=== PATIENT | male | born 1975 | race Caucasian/White ===

== ENCOUNTER 2023-06-01 21:46 | Emergency (ER) | payer MEDICAID, OTHER ==
[~2023-06-01] VITALS: Ht 177.8 cm; Wt 95.3 kg
[2023-06-01 21:50] VITALS: O2SAT 98
[2023-06-01] MEDS ORDERED: KETOROLAC TROMETHAMINE 30 MG INJ ONE (22:43)
[2023-06-01] MEDS: KETOROLAC TROMETHAMINE 30 MG INJ IM ONE (22:45)
[2023-06-01] MEDS ORDERED: CYCL10TA9 PO (23:09)
[2023-06-01] MEDS ORDERED: OXYC-133 PO (23:09)
[2023-06-01] MEDS ORDERED: ONDA4TAB11 PO (23:09)
== END 2023-06-01 23:30 | disposition home or self-care (01) ==
LOC: ER 21:51
DX: M25.552 Pain in left hip (principal); M54.50 Low back pain, unspecified; E78.5 Hyperlipidemia, unspecified; K21.9 Gastro-esophageal reflux disease without esophagitis; F17.200 Nicotine dependence, unspecified, uncomplicated
CPT/HCPCS: 99284; 72100; 73502; 96372; J1885; A4606; A4663